=== PATIENT | female | born 1955 | race Caucasian/White ===

== ENCOUNTER → 2017-09-30 17:13 | Outpatient (CLI) | payer BC ==
[2015-01-05 14:33] VITALS: BMI 40.6
[~2017-09-30 17:13] MED LIST: ASCORBIC ACID500 MG PO; CALCIUM 600+D T1 TA1 PO; CELEXA20 MG PO; CHROMIUM PICO200 MC1 PO; CO Q-1030 MG PO; ELIQUIS2.5 MG PO; FISH OIL 1,2001 CAP PO; FLUTICASONE PRO16 GM NASAL; LECITHIN1200 MG PO; LEXAPRO20 MG PO; MAGNESIUM OXID250 MG PO; NUCYNTA50 MG PO; PRILOSEC20 MG PO; VITAMIN B COMPL1 TAB PO; VITAMIN B-12500 MCG PO; VITAMIN E400 UNI2 PO; VOLTAREN75 MG PO; XANAX0.5 MG PO; ZESTORETIC 20/21 TAB PO
[2017-09-30 18:58] LABS: BASOPHILS 0.3 % (0-2); EOSINOPHILS 4.8 % (0-7); HEMOGLOBIN 11.9 g/dL (12-16); IMMATURE GRANULOCYTES 0.2 % (0-5); LYMPHOCYTES 30.8 % (15-50); MCH 30.4 pg (26.0-34.0); MCHC 33.1 g/dL (31.0-37.0); MCV 91.8 fL (80.0-100.0); MONOCYTES 6.5 % (2-11); NEUTROPHILS 57.4 % (40-80); PLATELET COUNT 251 10x3/uL (130-400); RBC 3.92 10x6/uL (4.00-5.40); RDW 13.3 % (11.5-14.5); WBC 6.5 10x3/uL (4.8-10.8)
[2017-09-30 20:11] LABS: ERYTHROCYTE SEDIMENTATION RATE 5 mm/hr (0-30)
== END | disposition home or self-care (01) ==
LOC: D.LABREF 17:13
PROVIDERS: Orthopaedic Surgery
DX: M25.561 Pain in right knee (principal)

== ENCOUNTER → 2017-10-21 09:40 | Outpatient (CLI) | payer BC ==
[2015-01-05 14:33] VITALS: BMI 40.6
== END | disposition home or self-care (01) ==
LOC: D.NM 09:40
DX: M25.561 Pain in right knee (principal)

== ENCOUNTER 2017-10-29 05:55 | Inpatient (IN) | payer BC ==
[2017-10-28 10:18] LABS: BASOPHILS 0.6 % (0-2); EOSINOPHILS 5.1 % (0-7); HEMATOCRIT 35.4 % (36.0-48.0); IMMATURE GRANULOCYTES 0.1 % (0-5); LYMPHOCYTES 33.4 % (15-50); MCH 30.4 pg (26.0-34.0); MCHC 33.9 g/dL (31.0-37.0); MCV 89.6 fL (80.0-100.0); NEUTROPHILS 52.8 % (40-80); PLATELET COUNT 236 10x3/uL (130-400); RBC 3.95 10x6/uL (4.00-5.40); RDW 13.2 % (11.5-14.5)
[2017-10-28 10:27] LABS: APTT 27.3 SECONDS (22.8-39.4); INR 1.06 (0.85-1.17); PROTIME 13.4 SECONDS (11.6-15.0)
[2017-10-28 10:30] LABS: ANION GAP 9.7 mmol/L (8-16); CALCIUM 9.1 mg/dL (8.5-10.1); CARBON DIOXIDE 29.1 mmol/L (21.0-32.0); POTASSIUM - SERUM 3.8 mmol/L (3.5-5.1)
[2017-10-28 10:37] LABS: APPEARANCE CLEAR (CLEAR); BILIRUBIN NEGATIVE (NEGATIVE); COLOR YELLOW (YELLOW); GLUCOSE NEGATIVE (NEGATIVE); KETONE NEGATIVE (NEGATIVE); NITRITE NEGATIVE (NEGATIVE); PROTEIN NEGATIVE (NEGATIVE); SPECIFIC GRAVITY 1.015 (1.005-1.020); UROBILINOGEN NORMAL (NORMAL)
[~2017-10-29] VITALS: Ht 172.7 cm; Wt 116.8 kg
[2017-10-29] VITALS (9 sets, daily range): BP systolic 110–142; BP diastolic 60–81; Ht 172.7 cm; Wt 116.8 kg
--- NOTE | ~2017-10-29 | OP ---
PATIENT NAME: RIYA PENNY MEDICAL RECORD: [id number] :55 LOCATION: [id number] ADMISSION DATE:10/29/17 SURGEON: DIONI SPARROW, DATE OF OPERATION: 10/29/2017 PROCEDURE PERFORMED: Revision of right knee patella from a total knee arthroplasty with a polyethylene exchange. PREOPERATIVE DIAGNOSIS: Right knee pain with patellar loosening. POSTOPERATIVE DIAGNOSIS: Right knee pain with patellar loosening. INDICATIONS: Ms. Pneny is a 62-year-old female who underwent a right total knee arthroplasty approximately 3 years ago. She has had pain on the patella for quite some time. It started shortly after having her knee done. She started to deal with the pain and worked up for infection, which was negative. I also did a bone scan to check for loosening, which came back as the patella was loose. I had a long discussion with her about this, saying that we could just watch it and do nothing. She was tired of dealing with the pain and I warned her that this is increased risk for infection going back in to a total knee increases the risk, but if she was wanting to try to do something about the pain, we could revise the patella and switch out the polyethylene due to the fact we would be going back in to the knee to help prevent infection. She was okay with this and knew the risks and benefits of this including loss of range of motion and patellar fracture and she consented to the procedure. SURGEON: Dioni Sparrow DO TOURNIQUET TIME: 60 minutes. BLOOD LOSS: 50 mL. COMPLICATIONS: None. DESCRIPTION OF PROCEDURE: The patient was given a block and preoperative anesthesia and taken to the operative suite, laid in supine position. The right lower extremity was prepped and draped in sterile fashion. Everybody was in agreement with the timeout, correct site, side, and the patient. After the prep and drape, tourniquet had been placed above the knee under the drapes prior to prepping and draping. After the time out, the patient received vancomycin and Ancef due to being a total knee, not wanting to risk of infection. Incision length was marked out and then Ioban was placed around the knee incision and commenced with a 10 blade down to the capsule itself. The capsule was cleared off medially and laterally and then a fresh 10 blade was used to do a capsulotomy in a medial parapatellar approach. The patella was then everted and the old patella was easily removed. An osteotome was put under it and it came off indicating that it was in fact loose. The couple of the pegs were still in the holes and these were taken out. We then cleaned up the patella and used a 34 mill to mill down just enough to put in the patella back on and to freshen up the cut, the caliper was used seeing that we had 13 mm of patella left so would accommodate a regular patella grey. The poly was then taken out. The 14 poly anterior stabilized trialled back to be 14 as well. The knee was then thoroughly irrigated with 6 liters of normal saline and then the patella was cemented on and pressed, used a grey to press it and to place while the cement dried and tourniquet was let down and any bleeders were coagulated at that time. OPERATIVE REPORT [id number] RIYA PENNY We then thoroughly irrigated the knee again and the polyethylene 14 was put back in and the locking mechanism was put in on the tibia. Once this was done, irrigated again and then vancomycin powder and Zenaida were placed in the knee. The capsule was closed with [id number] suture with #1 Vicryl and then the capsule was irrigated and then the Zenaida was put on the capsule and the skin was closed with 2-0 Vicryl in inverted interrupted fashion and then a ZipLine was placed on the knee, Adaptic, 4 x 4s, ABD, Webril, Mike wrap, and then a BRANDON hose was placed up to the knee and the patient was awakened and taken to recovery in stable condition. Blood loss approximately 50 mL. COMPLICATIONS: None. TRANSINT:[id number] Voice Confirmation ID: [id number] DOCUMENT ID: [id number] DIONI SPARROW DO at 1316 CC: [id number] DICTATION DATE: 10/29/17 173 INFRASTRUCTURE SOFTWARE ENGINEER: 10/29/172223 [facility] [address] [id number]
[~2017-10-29 05:55] MED LIST changes: +ACETAMINOPHEN325 MG PO; +LYRICA50 MG PO; +SINGULAIR10 MG PO; +ULTRAM50 MG PO; +ZYLOPRIM100 MG PO
[2017-10-30] VITALS: BP 126/57
[2017-10-30 04:00] VITALS: BP 144/87
[2017-10-30 06:05] LABS: HEMATOCRIT 32.8 % (36.0-48.0); HEMOGLOBIN 10.8 g/dL (12-16); MCH 29.9 pg (26.0-34.0); MCHC 32.9 g/dL (31.0-37.0); MCV 90.9 fL (80.0-100.0); MEAN PLATELET VOLUME 10.7 fL (7.4-10.4); RBC 3.61 10x6/uL (4.00-5.40); RDW 13.2 % (11.5-14.5); WBC 9.4 10x3/uL (4.8-10.8)
[2017-10-30 08:06] VITALS: BP 129/59
[2017-10-30 12:16] VITALS: BP 125/70
[2017-10-30] MEDS ORDERED: OXYCODONE HCL5 MG PO (14:44)
[2017-10-30] MEDS ORDERED: ELIQUIS2.5 MG PO (14:44)
[2017-10-30] MEDS ORDERED: ULTRAM50 MG PO (14:45)
[2017-10-30] MEDS ORDERED: KEFLEX500 MG PO (14:45)
== END 2017-10-30 17:32 | disposition home or self-care (01) | DRG 468 ==
LOC: D.MS 05:55 → D.SDCHOLD 05:55 → D.MS 16:58
PROVIDERS: Orthopaedic Surgery
PROC: 0SPV0JZ Removal of Synthetic Substitute from Right Knee Joint, Tibial Surface, Open Approach (ICD-10-PCS; 2017-10-29)
PROC: 0SRV0J9 Replacement of Right Knee Joint, Tibial Surface with Synthetic Substitute, Cemented, Open Approach (ICD-10-PCS; 2017-10-29)
PROC: 0SPC0JC Removal of Synthetic Substitute from Right Knee Joint, Patellar Surface, Open Approach (ICD-10-PCS; principal; 2017-10-29 14:00)
DX: T84.032A Mechanical loosening of internal right knee prosthetic joint, initial encounter (principal); I10 Essential (primary) hypertension

== ENCOUNTER → 2019-04-30 11:11 | Outpatient (CLI) | payer BC ==
[2017-10-29 17:08] VITALS: BMI 39.1
[~2019-04-30 11:11] MED LIST changes: +KEFLEX500 MG PO; +OXYCODONE HCL5 MG PO
== END | disposition home or self-care (01) ==
LOC: D.MRI 11:11
PROVIDERS: ATTEND Orthopaedic Surgery
DX: M47.817 Spondylosis without myelopathy or radiculopathy, lumbosacral region (principal)